=== PATIENT | male | born 1950 | race Caucasian/White ===

== ENCOUNTER 2020-06-10 16:38 | Outpatient (RCR) | payer MEDICARE, SELFPAY ==
[2020-06-10] MEDS: COVID-19 VACC, MRNA(PFIZER)/PF 30 MCG/0.3 ML SYRINGE IM (09:23)
[2020-07-01] MEDS: COVID-19 VACC, MRNA(PFIZER)/PF 30 MCG/0.3 ML SYRINGE IM (08:59)
== END 2020-09-09 23:59 ==
LOC: IMMUN 16:38
PROVIDERS: PCP Family Medicine; Visit Provider Family Medicine
DX: Z23 Encounter for immunization (principal)
CPT/HCPCS: 0001A; 0002A; 91300

== ENCOUNTER 2022-09-05 11:16 | Observation (INO) | payer MEDICARE, SELFPAY ==
[2022-09-05] VITALS (9 sets, daily range): BP systolic 121–181; BP diastolic 71–124; PULSE 57–145; RESP 11–18; TEMP 36.1–36.7; O2SAT 95–100; BMI 24.0; BMI 23.6
--- NOTE | 2022-09-05 11:34 | EKG12_ITS ---
Test Reason : REPEAT Blood Pressure : / mmHG Vent. Rate : 076 BPM Atrial Rate : 288 BPM P-R Int : 000 ms QRS Dur : 102 ms QT Int : 368 ms P-R-T Axes : 266 -15 020 degrees QTc Int : 414 ms Atrial flutter Minimal voltage criteria for LVH, may be normal variant ( R in aVL ) Abnormal ECG Confirmed by LIZZIE DAY, BIJAL ([id number]), editor house organ MAICO SANTOS ([id number]) on 09/06/2022 11:37:19 AM Referred By: Confirmed By:BIJAL SAMUEL MD
--- NOTE | 2022-09-05 11:45 | RAD_ITS ---
EXAM: XR CHEST, 1 VIEW CLINICAL INDICATION: CAD TECHNIQUE: Frontal view of the chest. COMPARISON: No relevant prior studies available. FINDINGS: LUNGS AND PLEURAL SPACES: Normal. No consolidation or edema. No pneumothorax. No effusion. HEART: Normal heart size. MEDIASTINUM: No mediastinal or hilar mass. BONES/JOINTS: No acute abnormality. RAD/Chest 1 View (Portable) IMPRESSION: No acute cardiopulmonary disease. Electronically Signed: Linden Hamlin MD at 12:55 EDT ,
--- NOTE | 2022-09-05 11:45 | EX.ED.DYSGE1 ---
HPI History of Present Illness Chief Complaint: Palpitations Narrative Narrative: 72-year-old male, history of mitral valve prolapse and chronic dysrhythmia, presents with high heart rate and palpitations that began last evening. He relates remote history 30 years ago that he would exercise and lift weights, but his heart rate would never come down and would remain elevated around 120 bpm. He states he has had work-up and EKG and was told he had mitral valve prolapse. Last evening, he began feeling his heart palpitations. He denies any chest pain, chest tightness, nausea, vomiting, or diaphoresis. No exacerbating or alleviating factors. 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 His symptoms started last evening without exerting himself. [facility] Medical History (Updated 09/05/22 @ 16:26 by Ernesto Greene MD) Mitral valve prolapse Home Medications Vitamin D3 2,000 units PO/SL DAILY supplement 09/05/22 [History Last Taken Unknown] omeprazole 20 mg capsule,delayed release 20 mg PO DAILY Check with primary doctor 09/05/22 [History Last Taken Unknown] Allergy/AdvReac Type Severity Reaction Status Date / Time erythromycin base Allergy Nausea/Vom/ Verified 09/05/22 11:17 Diarrhea Penicillins [PCN] Allergy Rash Verified 09/05/22 11:17 Social History (Updated 09/05/22 @ 14:15 by Breanne Bashir) housing: house Smoking Status: Never smoker ROS ROS ED ROS Narrative Constitutional: No fever, no chills. HEENT: No sore throat. No neck pain. No loss of vision. No rhinorrhea. Cardiovascular: No chest pain. Positive palpitations. No pedal edema. Respiratory: No cough, no shortness of breath. Abdominal: No abdominal pain. No nausea. No vomiting. Genitourinary: No dysuria. No hematuria. Musculoskeletal: No myalgias. No arthralgias. Neurologic: No headaches. No dizziness. No lightheadedness. Skin: No rash. No change in color. Psychiatric: No depression. No anxiety. EXAM Physical Exam Narrative Exam Narrative: Afebrile. Vital signs noted. HEENT: Normocephalic. Atraumatic. PERRL, EOMI. Neck soft and supple. No point tenderness or step off. Cardiovascular: Positive tachycardia, very rarely irregular, at around 145 bpm. No murmurs, rubs, or gallops appreciated. Respiratory: No tachypnea. Lungs clear to auscultation bilaterally. Gastrointestinal: Abdomen soft, nontender, with normoactive bowel sounds. No rebound or guarding. Neurological: Awake. Alert. Nonfocal, nonlateralizing. Skin: No rash. Normal color. No pallor. Musculoskeletal: No pedal edema. Full range of motion extremities. Const Vital Signs: 09/05/22 11:17 09/05/22 11:39 Temperature 97.7 F L Temperature Source Temporal Pulse Rate 139 H 145 H Respiratory Rate 18 11 L Blood Pressure 181/124 H 177/116 H Blood Pressure Mean 143 136 Pulse Ox 96 Oxygen Delivery Method Room Air MDM MDM MDM Narrative Medical decision making narrative: EKG was obtained and interpreted by myself as atrial flutter with 2-1 block. I do not feel adenosine is indicated, rather given his elevated heart rate around 150, suspicion was initially for atrial fibrillation. He will be administered Cardizem as he relates history that he used to take a beta-kary for heart dysrhythmias but did not tolerate it. Chest x-ray will be obtained along with basic laboratory work, troponin, magnesium, and TSH. Chest x-ray obtained and interpreted by myself shows no evidence of acute cardiopulmonary process, no pneumonia or pneumothorax. I do not feel any antibiotics are indicated. I reviewed the radiology report which confirms my independent interpretation. I reviewed the patient's laboratory work, WBC count is slightly elevated 11.9 which I think is nonspecific, mild hemoconcentration with a hemoglobin of 16.8, hematocrit normal 49.1. Platelet count normal at 231. In review of his electrolytes, potassium is normal at 3.6, normal sodium of 141, BUN slightly elevated 19 with a creatinine of 1.18. Magnesium is normal at 2.3. Initial high-sensitivity troponin is 67, but still within normal limits. TSH is slightly elevated at 4.84 more consistent with hypothyroidism. After Cardizem, his blood pressure has come down to a more acceptable/borderline level, his heart rate was in the 70s. Repeat EKG interpreted by myself shows atrial flutter with a rate controlled in the 70s. No acute ST changes on my interpretation. Given his onset atrial flutter, patient was discussed with Dr. Pierce for admission. Patient is in stable condition. History & Record Review Discussion w/independent historian: Patient and Family Additional record(s) reviewed:: No prior records Lab Data Attestation: I reviewed the patient's lab results. Labs: Laboratory Results - last 24 hr 09/05/22 09/05/22 09/05/22 11:20 11:20 11:20 WBC 11.9 H RBC 5.65 Hgb 16.8 H Hct 49.1 MCV 86.9 MCH 29.7 MCHC 34.2 RDW Std Deviation 41.5 RDW Coeff of Keron 13.2 Plt Count 231 MPV 10.2 Immature Gran % (Auto) 0.700 Neut % (Auto) 77.0 H Lymph % (Auto) 12.6 L [place] % (Auto) 9.3 Eos % (Auto) 0.1 Baso % (Auto) 0.3 Absolute Neuts (auto) 9.2 H Absolute Lymphs (auto) 1.50 Nucleated RBC % 0 Sodium 141 Potassium 3.6 Chloride 107 Carbon Dioxide 26.0 Anion Gap 8 BUN 19 H Creatinine 1.18 Estim Creat Clear Calc 65.83 Est GFR (MDRD) Af Amer 78 Est GFR (MDRD) Non-Af 65 BUN/Creatinine Ratio 16.1 Glucose 113 H Calcium 9.4 Phosphorus 3.4 Magnesium 2.3 2.4 Total Bilirubin 0.50 AST 24 ALT 24 Alkaline Phosphatase 63 Troponin I High Sens 67 Total Protein 7.4 Albumin 4.2 Globulin 3.2 Albumin/Globulin Ratio 1.3 TSH 4.84 H Radiography Diagnostic Testing: Clinical Impression(s) from Imaging Studies Chest X-Ray 09/05/22 11:45 IMPRESSION: No acute cardiopulmonary disease. Electronically Signed: Linden Hamlin MD at 12:55 EDT , Discharge Plan Dx/Rx/DC Orders Clinical Impression: Atrial flutter with rapid ventricular response, Palpitations Disposition Disposition: Acute Care Hospital [facility] Discharge Date/Time: 09/05/22 13:43
[2022-09-05] MEDS: dilTIAZem 25 MG/5 ML Vial 20 MG IV BOLUS (11:47)
[2022-09-05 11:49] LABS: Absolute Neutrophil Count 9.2 X10^3/uL (2.0-7.7); Basophil# 0.04 X10^3/uL; Basophil% 0.3 % (0-1); Eosinophil# 0.01 X10^3/uL; Eosinophils% 0.1 % (0-5); Hematocrit 49.1 % (40-54); Hemoglobin 16.8 g/dL (13.0-16.5); Lymphocyte % 12.6 % (19-41); Mean Corp Hgb Conc 34.2 g/dL (32-36); Mean Corpuscular Hgb 29.7 pg (27.0-32.0); Mean Corpuscular Volume 86.9 fL (80-94); Mean Platelet Vol. 10.2 fl (6.2-12.0); Monocyte# 1.11 X10^3/uL; Monocyte% 9.3 % (0-10); NRBC Flagged by Analyzer 0 % (0-5); Neutrophil # 9.15 X10^3/uL (2.7-7.7); Platelet Count 231 K/mm3 (150-450); RBC Distribution Width CV 13.2 % (11.6-14.6); RBC Distribution Width SD 41.5 fl (35.1-43.9); Red Blood Count 5.65 M/mm3 (4.6-6.2); White Blood Count 11.9 K/mm3 (4.4-11.0)
--- NOTE | 2022-09-05 12:04 | EKG12_ITS ---
Test Reason : PALPITATIONS Blood Pressure : / mmHG Vent. Rate : 145 BPM Atrial Rate : 290 BPM P-R Int : 000 ms QRS Dur : 110 ms QT Int : 252 ms P-R-T Axes : 232 -21 056 degrees QTc Int : 391 ms Atrial flutter with 2:1 A-V conduction Incomplete right bundle branch block Minimal voltage criteria for LVH, may be normal variant ( R in aVL ) Nonspecific ST abnormality Abnormal ECG Confirmed by LIZZIE DAY, BIJAL ([id number]), videotape editor MAICO SANTOS ([id number]) on 09/06/2022 11:37:40 AM Referred By: SUKI Confirmed By:BIJAL SAMUEL MD
[2022-09-05 12:18] LABS: ALB/GLOB Ratio 1.3 RATIO (0.9-2.4); AST(SGOT) 24 U/L (15-37); Alanine Aminotransfer ALT/SGPT 24 U/L (16-61); Albumin, Serum 4.2 g/dL (3.2-5.0); Alkaline Phosphatase 63 U/L (45-117); Anion Gap 8 (5-15); BUN 19 mg/dL (7-18); BUN/Creat Ratio 16.1 RATIO (10-20); Calcium,Total 9.4 mg/dL (8.5-10.1); Chloride 107 mmol/L (98-107); Creatinine, Serum 1.18 mg/dL (0.70-1.30); EST Glomerular Filtration Rate 65 mL/min (>60); Est Glom Filt Rate - Afr Amer 78 mL/min (>60); Estimated Creatinine Clearance 65.83 ml/min; Globulin 3.2 g/dL (2.2-4.2); Glucose 113 mg/dL (74-106); Magnesium 2.3 mg/dL (1.6-2.6); Potassium 3.6 mmol/L (3.5-5.1); Protein, Total 7.4 g/dL (6.4-8.2); Sodium Level 141 mmol/L (136-145); Thyroid Stim Hormone (TSH) 4.84 uIU/mL (0.358-3.74); Troponin-I HS 67 pg/mL (3.0-78.0)
--- NOTE | 2022-09-05 13:08 | PCM.HP.STD ---
[facility] - General General Date of Admission: 09/05/22 Date of Service: 09/05/22 Chief Complaint: Palpitations started last night. HPI Narrative MILLA DANG, is a 72 healthy gentleman came to ED for palpitation that started last night. Patient felt his heart racing and palpitation without exacerbating or relieving factor. Patient also felt winded/mild shortness of breath last evening but denies chest pain tightness or pressure. He has history of mitral valve prolapse diagnosed about 30 years ago when he was still heavy lifting and exercise and heart rate would not come down and remained elevated in the 120s. After he stopped doing heavy exercise, he did not had problems with a heart rate. At that time he was also on metoprolol for 6 months and was discontinued operatory felt mild coldness in hands and feet with physician recommendation. No history of coronary artery disease or dysrhythmia in the past. Patient denies history of hypertension, diabetes mellitus, coronary artery disease or other cardiac disease pulmonary disease or stroke/PAD. Twelve-lead EKG in ED shows atrial flutter 145/m; 2:1 conduction, incomplete RBBB, mild LVH with nonspecific ST-T abnormality. Patient was given diltiazem 20 mg IV push and heart rate slowed down to 76 bpm. Previous EKG in October 2011 was normal sinus rhythm 76 bpm. Patient also had hives about 3 to 4 days ago and was given prescription of hydroxyzine and tapering dose of prednisone. Patient is on 3rd day of prednisone 40 mg, then 20 mg for 3 days and then 10 mg for 3 days then stop. Patient states hives got cleared even before starting prednisone and hydroxyzine. He is also on PPI for abdominal pain. Patient has lower bilateral abdominal pain/pelvic pain and was started on PPI after extensive work-up including ultrasound and abdominal CT scan did not show acute abnormality as per the patient. He had 3 meshes for left recurrent inguinal hernia repair. Patient states after he started prednisone he feels relief from the lower abdominal pain. Social history: No smoking or chronic alcohol use. No substance use. Family history: Noncontributory to the present illness. [facility] Home Medications omeprazole 20 mg capsule,delayed release mg 09/05/22 [History Last Taken Unknown] Allergy/AdvReac Type Severity Reaction Status Date / Time erythromycin base Allergy Nausea/Vom/ Verified 09/05/22 11:17 Diarrhea Penicillins [PCN] Allergy Rash Verified 09/05/22 11:17 Social History Smoking Status: Never smoker ROS ROS Narrative Constitutional: No fever. No weight loss or acute pain. HEENT: Reports systems reviewed and no addt'l complaints, except as documented Respiratory/Chest: No acute shortness of breath or respiratory distress or wheezing. CVS: As mentioned HPI Gastrointestinal: Denies coffee ground emesis, hematemesis or vomiting Genitourinary: Denies burning urination or new urinary tract symptoms Musculoskeletal: Denies acute joint pain or limited range of motion. No acute injury Neurologic: Denies seizure-like symptoms. skin: history of recent hives, resolved; admission HPI. Endocrinology: Denies diabetes mellitus. Reports systems reviewed and no addt'l complaints, except as documented Hematologic/Lymphatic: Reports systems reviewed and no addt'l complaints, except as documented Rest 14 ROS are negative except as mentioned in HPI Vital Signs Vital Signs Vital Signs: 09/05/22 11:17 09/05/22 11:39 Temperature 97.7 F L Temperature Source Temporal Pulse Rate 139 H 145 H Respiratory Rate 18 11 L Blood Pressure 181/124 H 177/116 H Blood Pressure Mean 143 136 Pulse Ox 96 Oxygen Delivery Method Room Air Weight Weight: 182 lb 11.2 oz Body Mass Index (BMI) 24.0 Physical Exam Narrative General: Alert, Oriented x3, Cooperative HEENT: Atraumatic, PERRLA, EOMI, Normocephalic Oral: No Gingival or Mucosal Lesions/ Ulcerations Neck: Supple, No JVD, Negative Carotid Bruits Lungs: Air entry diminished in bilateral lung bases. No crepitation/rhonchi Cardiovascular: Atrial flutter, Normal S1, Normal S2, systolic murmur with click over cardiac apex and LLSB Abdomen: Bowel Sounds Present, Soft, Non Tender, Non-Distended : No renal angle tenderness. No suprapubic tenderness. Extremities: No edema, Capillary Refill Less than 3 Seconds Skin: No rashes, No breakdown Musculoskeletal: No Tenderness to Palpation of Joints or Extremities Neurological: Cranial nerves II-XII grossly intact, DTR 2+/4 and Symmetrical, Neuro grossly intact Psych/Mental Status: Normal Affect, Appropriate. Results Lab / Micro Data Result Diagrams: 09/05/22 11:20 09/05/22 11:20 Labs: Laboratory Results - last 24 hr 09/05/22 11:20: WBC 11.9 H, RBC 5.65, Hgb 16.8 H, Hct 49.1, MCV 86.9, MCH 29.7, MCHC 34.2, RDW Std Deviation 41.5, RDW Coeff of Keron 13.2, Plt Count 231, MPV 10.2, Immature Gran % (Auto) 0.700, Neut % (Auto) 77.0 H, Lymph % (Auto) 12.6 L, Benzie % (Auto) 9.3, Eos % (Auto) 0.1, Baso % (Auto) 0.3, Absolute Neuts (auto) 9.2 H, Absolute Lymphs (auto) 1.50, Nucleated RBC % 0 09/05/22 11:20: Sodium 141, Potassium 3.6, Chloride 107, Carbon Dioxide 26.0, Anion Gap 8, BUN 19 H, Creatinine 1.18, Estim Creat Clear Calc 65.83, Est GFR (MDRD) Af Amer 78, Est GFR (MDRD) Non-Af 65, BUN/Creatinine Ratio 16.1, Glucose 113 H, Calcium 9.4, Magnesium 2.3, Total Bilirubin 0.50, AST 24, ALT 24, Alkaline Phosphatase 63, Troponin I High Sens 67, Total Protein 7.4, Albumin 4.2, Globulin 3.2, Albumin/Globulin Ratio 1.3, TSH 4.84 H Radiology Impression Chest X-Ray 09/05/22 11:45 IMPRESSION: No acute cardiopulmonary disease. Electronically Signed: Linden Hamlin MD at 12:55 EDT , Assessment & Plan Assessment/Plan (1) Atrial flutter with rapid ventricular response: PLAN: Plan This 72-year-old gentleman being admitted for new onset atrial flutter with RVR 1. Atrial flutter with RVR: Patient is being admitted in PCU. Patient heart rate has slowed down after 20 mg diltiazem bolus. Metoprolol 25 mg twice daily first dose now. Electrolytes in normal range. TSH 4.84 upper normal range. Free T4 ordered for tomorrow AM. First troponin normal. Repeat second troponin of 2 hours and if that normal, does not need further troponin. Patient profile tomorrow AM. [id number] 2 score is 1. Started on Eliquis 5 mg twice daily. 2D echo ordered. 2. Elevated BP: BP was 181/124, decreased to 156/99 in ED. Patient does not have diagnosis of hypertension. lisinopril 10 mg started. Titrate antihypertensive medication as per blood pressure monitoring. Labetalol 10 mg IV every 4 hourly as needed for systolic blood pressure more than 180 mmHg. Patient will need ambulatory or home BP monitoring to diagnose hypertension. 3. Mild hyperglycemia glucose 113: A1c ordered for tomorrow AM. 4. Recent hives, resolved. Patient on tapering dose of prednisone. Prednisone 20 mg daily for 3 days, 10 mg for 3 days and then stop. 5. Nonspecific lower abdominal pain with history of left recurrent inguinal hernia status post 3 times mesh repair: Patient is getting benefited with PPI and prednisone. Continue PPI. Discussed with patient if patient still has abdominal pain after 6 to 8 weeks of PPI will need EGD. Follow-up GI outpatient referral from PCP. VTE prophylaxis: Moderate-risk: On Eliquis 5 mg twice daily. Living will/advanced directive/end of life care: Patient does not have signed living will or advanced directive but he completed all the paperwork. After discussion of benefits/risks procedures involved with full code, DNR CC arrest and DNR CC, the patient, his and son near the bedside opted for full code. Patient does want artificial life support including intubation, tube feed, ventilator and/chest compression, central venous catheter, vasopressor and DC shock if needed Total time spent in [id number] encounter in discussion of advanced directive 17 minutes. Laboratory Results 09/05/22 11:20: WBC 11.9 H, RBC 5.65, Hgb 16.8 H, Hct 49.1, MCV 86.9, MCH 29.7, MCHC 34.2, RDW Std Deviation 41.5, RDW Coeff of Keron 13.2, Plt Count 231, MPV 10.2, Immature Gran % (Auto) 0.700, Neut % (Auto) 77.0 H, Lymph % (Auto) 12.6 L, Benzie % (Auto) 9.3, Eos % (Auto) 0.1, Baso % (Auto) 0.3, Absolute Neuts (auto) 9.2 H, Absolute Lymphs (auto) 1.50, Nucleated RBC % 0 09/05/22 11:20: Sodium 141, Potassium 3.6, Chloride 107, Carbon Dioxide 26.0, Anion Gap 8, BUN 19 H, Creatinine 1.18, Estim Creat Clear Calc 65.83, Est GFR (MDRD) Af Amer 78, Est GFR (MDRD) Non-Af 65, BUN/Creatinine Ratio 16.1, Glucose 113 H, Calcium 9.4, Magnesium 2.3, Total Bilirubin 0.50, AST 24, ALT 24, Alkaline Phosphatase 63, Troponin I High Sens 67, Total Protein 7.4, Albumin 4.2, Globulin 3.2, Albumin/Globulin Ratio 1.3, TSH 4.84 H 09/05/22 11:20: Phosphorus 3.4, Magnesium 2.4 Clinical Impression(s) from Imaging Studies Chest X-Ray 09/05/22 11:45 IMPRESSION: No acute cardiopulmonary disease. Charges/Coding Visit Charges Inpatient E&M: 90118 Init Hosp L3 Procedures Hospitalists Procedures: 80618 Advncd Care Plan 30 Min
[2022-09-05 13:28] LABS: Magnesium 2.4 mg/dL (1.6-2.6); Phosphorus 3.4 mg/dL (2.5-4.9)
[2022-09-05] MEDS: Potassium Chloride Oral Tablet 20 MEQ 40 MEQ PO (13:36)
[2022-09-05] MEDS: Lactated Ringers 1,000 ML 75 ML IV (14:17)
[2022-09-05 14:40] LABS: Troponin-I HS 87 pg/mL (3.0-78.0)
[2022-09-05] MEDS: predniSONE 10 MG Tablet 20 MG PO (15:14)
[2022-09-05] MEDS: APIXABAN 5 MG TABLET PO ×2 (15:15→22:41)
[2022-09-05] MEDS: Metoprolol Tartrate 25 MG Tablet PO (15:15)
[2022-09-05] MEDS: Pantoprazole Sodium 40 MG Tablet PO (15:15)
[2022-09-05] MEDS: Lisinopril 10 MG Tablet PO (15:15)
[2022-09-05] MEDS: Loratadine 10 MG Tablet PO (22:41)
[2022-09-06 03:29] VITALS: BP 120/76; PULSE 54; RESP 18; TEMP 36.6; O2SAT 96
--- NOTE | 2022-09-06 03:37 | EKG12_ITS ---
Test Reason : RHYTHM CONVERSION Blood Pressure : / mmHG Vent. Rate : 048 BPM Atrial Rate : 048 BPM P-R Int : 148 ms QRS Dur : 096 ms QT Int : 478 ms P-R-T Axes : 058 -01 008 degrees QTc Int : 427 ms Sinus bradycardia Otherwise normal ECG When compared with ECG of 05-SEP-2022 11:56, MANUAL COMPARISON REQUIRED, DATA IS UNCONFIRMED Confirmed by LIZZIE DAY, BIJAL ([id number]), videotape editor MAICO SANTOS ([id number]) on 09/07/2022 8:59:22 AM Referred By: COBY Confirmed By:BIJAL SAMUEL MD
--- NOTE | 2022-09-06 05:55 | ECHOD_ITS ---
Version 2 Reason For Study: ARRYTHMIA Procedure This was a 2D Doppler, Color Flow transthoracic echocardiogram. Exam performed portable in patient room. Left Ventricle Normal LV size. Left ventricular systolic function is normal. The estimated ejection fraction is 55 %. No regional wall motion abnormalities noted. Right Ventricle Normal RV size. Normal systolic function. Atria The left atrium is mildly enlarged. The right atrium is mildly enlarged. Mitral Valve Mild diffuse mitral valve thickening. Mild mitral valve prolapse. Mild (1+) eccentric mitral valve insufficiency. Tricuspid Valve Normal tricuspid valve. Mild tricuspid valve insufficiency. Pulmonary artery systolic pressure is 23 mmHg. Aortic Valve Trisinus/trileaflet aortic valve. Mild (1+) eccentric aortic valve insufficiency. Pulmonic Valve Normal pulmonic valve. Great Vessels Normal aortic root. The pulmonary artery is normal size. Inferior vena cava collapse with respiration. Pericardium/Pleural No pericardial effusion. MMode/2D Measurements & Calculations LVIDd: 5.0 cm IVSd: 1.1 cm Ao root diam: 3.7 cm LVIDs: 3.7 cm LVPWd: 1.4 cm RVDd: 5.1 cm FS: 26.6 % LAV(MOD-bp): 74.5 ml LVAd ap4: 40.2 cm2 SV(MOD-sp4): 92.5 ml LAV(MOD-bp) Indexed: 36.4 ml/m2 LVLd ap4: 9.2 cm LAV(MOD-sp2): 74.9 ml EDV(MOD-sp4): 146.4 ml LAV(MOD-sp4): 74.0 ml EDV(sp4-el): 148.9 ml LVAs ap4: 21.5 cm2 LVLs ap4: 7.8 cm ESV(MOD-sp4): 53.8 ml ESV(sp4-el): 50.5 ml EF(MOD-sp4): 63.2 % EF(sp4-el): 66.1 % SV(sp4-el): 98.4 ml LA A4 area: 23.3 cm2 LA dimension(2D): 3.6 cm RA A4 area: 25.6 cm2 Time Measurements MV dec time: 0.31 sec Doppler Measurements & Calculations MV E max shankar: 46.5 cm/sec Lat Peak E' Shankar: 11.7 cm/sec Med Peak E' Shankar: 6.9 cm/sec MV A max shankar: 31.0 cm/sec E/E' lat: 4.0 E/E' med: 6.7 MV E/A: 1.5 MV V2 max: 100.0 cm/sec Ao V2 max: 138.7 cm/sec MV max P.1 mmHg MV dec slope: 152.5 cm/sec2 Ao max P.7 mmHg MV V2 mean: 54.9 cm/sec Ao V2 mean: 87.6 cm/sec MV mean P.4 mmHg Ao mean P.7 mmHg MV V2 VTI: 33.1 cm Ao V2 VTI: 28.0 cm AV (velocity ratio): 0.91 LV V1 max: 122.7 cm/sec TR max shankar: 225.2 cm/sec LV V1 max P.1 mmHg TR max P.3 mmHg LV V1 mean P.8 mmHg LV V1 mean: 77.9 cm/sec LV V1 VTI: 25.6 cm ECHO/Echo Complete Interpretation Summary Normal LV size. Left ventricular systolic function is normal. The estimated ejection fraction is 55 %. No regional wall motion abnormalities noted. Mild diffuse mitral valve thickening. Mild mitral valve prolapse. Mild (1+) eccentric mitral valve insufficiency. Mild tricuspid valve insufficiency. Ordering Physician: Babak Pierce Referring Physician: Taina Dumont M.D. Performed By: Jazmin Newell RCS
[2022-09-06 07:23] LABS: Absolute Lymphocyte Count 1.34 X10^3/uL (0.83-4.51); Absolute Neutrophil Count 7.1 X10^3/uL (2.0-7.7); Basophil# 0.04 X10^3/uL; Basophil% 0.4 % (0-1); Eosinophil# 0.01 X10^3/uL; Eosinophils% 0.1 % (0-5); Hematocrit 48.3 % (40-54); Hemoglobin 15.7 g/dL (13.0-16.5); Lymphocyte # 1.34 X10^3/ul (0.83-4.51); Lymphocyte % 14.5 % (19-41); Mean Corp Hgb Conc 32.5 g/dL (32-36); Mean Corpuscular Hgb 29.2 pg (27.0-32.0); Mean Corpuscular Volume 89.9 fL (80-94); Mean Platelet Vol. 10.8 fl (6.2-12.0); Monocyte# 0.65 X10^3/uL; Monocyte% 7.1 % (0-10); NRBC Flagged by Analyzer 0 % (0-5); Neutrophil % 77.1 % (47-70); Platelet Count 226 K/mm3 (150-450); RBC Distribution Width CV 13.4 % (11.6-14.6); RBC Distribution Width SD 43.9 fl (35.1-43.9); Red Blood Count 5.37 M/mm3 (4.6-6.2); White Blood Count 9.2 K/mm3 (4.4-11.0)
[2022-09-06 07:56] VITALS: O2SAT 98
[2022-09-06 08:48] LABS: AST(SGOT) 19 U/L (15-37); Alanine Aminotransfer ALT/SGPT 24 U/L (16-61); Albumin, Serum 3.5 g/dL (3.2-5.0); Alkaline Phosphatase 58 U/L (45-117); Anion Gap 8 (5-15); BUN 21 mg/dL (7-18); BUN/Creat Ratio 21.7 RATIO (10-20); Bilirubin, Direct 0.15 mg/dL (0.00-0.30); Calcium,Total 9.1 mg/dL (8.5-10.1); Chloride 108 mmol/L (98-107); Cholesterol 187 mg/dL (200); Creatinine, Serum 0.97 mg/dL (0.70-1.30); EST Glomerular Filtration Rate 82 mL/min (>60); Est Glom Filt Rate - Afr Amer 99 mL/min (>60); Estimated Creatinine Clearance 80.08 ml/min; Globulin 2.9 g/dL (2.2-4.2); Glucose 116 mg/dL (74-106); High Density Lipoprotein 28 mg/dL; Potassium 4.5 mmol/L (3.5-5.1); Protein, Total 6.4 g/dL (6.4-8.2); Sodium Level 139 mmol/L (136-145); T4 Free Direct 0.87 ng/dL (0.76-1.46); Triglycerides 136 mg/dL; Very Low Density Lipoprotein 27 mg/dL (5-40)
[2022-09-06 09:11] VITALS: BP 123/75; PULSE 53; RESP 16; TEMP 36.7; O2SAT 98
[2022-09-06] MEDS: Pantoprazole Sodium 40 MG Tablet PO (09:18)
[2022-09-06] MEDS: APIXABAN 5 MG TABLET PO ×2 (09:18→18:25)
[2022-09-06] MEDS: predniSONE 10 MG Tablet 20 MG PO (09:18)
[2022-09-06 09:20] LABS: Hemoglobin A1c 5.8 % (3.8-5.6)
[2022-09-06 10:55] VITALS: PULSE 53
--- NOTE | 2022-09-06 11:30 | CASEMGMT ---
RN?CM?CHIMNEY CONSTRUCTION SUPERVISOR?CM?to room to meet with patient for initial transition planning/care coordination?assessment.?RN?CM?introduced self and role at [facility] [place].? Pt voices understanding and consents to?assessment?at this time.? Pt resting in bed in no distress at this time.? Pt is A/O at this time and answers all questions appropriately.?? Care providers, pharmacy, and demographics verified/updated at this time. PCP: Dr Dumont Specialists: Dr Hay-surgeon [facility]erred [facility]acy: [facility] Insurance: [employer] Prescription Benefit: yes. Pt provided w/Eliquis 30-day savings card and instructed on use. Living Will/HPOA:?Pt does not currently have LW/HCPOA. He states he has the paperwork filled out but just needs to get it notarized. Pt made aware SW can assist, if needed. He declines needing assistance. LNOK: , Anneliese. 2 sons. One's name is Jf Living Arrangements: Lives w/ in 2-story home w/2 steps to enter. Denies difficulty w/stairs. Independent. Transportation:?Pt states drives self and states no transportation concerns at this time.? also drives. DME: ? Denies using any DME and denies needs.? HHC/SNF: No hx of either and denies need for HHC. No needs identified. Pt wishes to return home and states has no concerns with going home at time of discharge.? CM?to follow for any further discharge planning/needs.? Pt voices no further concerns/needs at this time.? Advised pt to ask for?CM?if any further questions/concerns/needs arise.? Voices understanding. PLAN:??Home Yvette PRUITTN?RN?CM
--- NOTE | 2022-09-06 15:10 | CHAPLAIN ---
Type of Pastoral Visit _x__ Initial Visit ___ Follow-up Visit ___ On-call Visit ___ General Patient Visit ___ Spiritual Assessment ___ Family Conference ___ Bereavement ___ Rapid Response ___ Code Blue ___ Other (describe below) Pastoral Care Referral From _x__ Patient ___ Family ___ Nurse ___ Physician ___ Sawmill Worker ___ Industrial Electrician Journeyman ___ Other (describe below) Sacrament/Intervention _x__ Active listening ___ Anointing ___ Congregation ___ Bereavement ___ Communion _x__ Elaina exploration ___ _x__ Life review _x__ Prayer ___ Reconciliation ___ Sacrament of Sick ___ Supportive presence ___ Wedding ___ Other (describe below) Pastoral Comments patient is a professional acquaintance; pt is eager to talk and receive spiritual care support; pt talks about his life, his elaina, his family; pt does not have extra concerns at this time but welcomes the presence and prayer for support
[2022-09-06 17:13] VITALS: BP 122/68; PULSE 58; RESP 16; TEMP 36.7; O2SAT 96
--- NOTE | 2022-09-06 17:56 | DCINST_ITS ---
Discharge Instructions Diet Discharge Diet: Low fat / Low cholesterol Activity Discharge Activity: Return to Normal Activity Dressing / Incision Call your doctor if you observe: Fever of 101 or Higher, Shortness of breath, Dizziness, Swelling in the ankles, Chest pain and Increased palpitations (irregular heartbeat) Follow Up Care Test Results: Test results from this visit will be discussed in further detail at your follow- up appointment, if applicable. Discharge Plan Admission Admit Date/Time: 09/05/22 13:03 Primary Reason for Your Visit: afib Attending Provider: Karly Diggs Primary Care Provider: Taina Dumont Consulting Providers: Babak Pierce Instructions Patient Instructions: AFib Discharge Orders/Prescriptions Prescriptions: New Eliquis 5 mg Tablet 5 mg PO Q12 Qty: 60 2RF metoprolol tartrate 25 mg tablet 12.5 mg PO BID Qty: 30 1RF Continued omeprazole 20 mg capsule,delayed release(DR/EC) 20 mg PO DAILY Label Comments: take 1 capsule by mouth EVERY MORNING BEFORE BREAKFAST Vitamin D3 2,000 units PO/SL DAILY Referrals / Follow Up: Taina Dumont MD [Primary Care Provider] - Taina Dumont MD [[facility]] - Within 1 Week Disposition Disposition (needs filled in before D/C Order can be placed): Home, Self Care
--- NOTE | 2022-09-06 17:57 | DS.PCM_ITS ---
Providers Date of Admission: 09/05/22 Primary Care Physician: Dr. Taina Dumont MD Reason For Visit: ATRIAL FLUTTER WITH RVR Diagnosis Discharge Diagnosis (1) Atrial flutter with rapid ventricular response: Status: Acute Code(s): I48.92 - Unspecified atrial flutter Medications at Discharge Home Medications Vitamin D3 2,000 units PO/SL DAILY supplement 09/05/22 omeprazole 20 mg capsule,delayed release 20 mg PO DAILY reflux 09/05/22 apixaban 5 mg tablet (Eliquis) 5 mg PO Q12 #60 tabs 09/06/22 metoprolol tartrate 25 mg tablet 12.5 mg PO BID #30 tabs 09/06/22 Hospital Course Operations None Procedures 2-D Echocardiogram Summary of Care Provided Minutes Spent on Discharge: 44 Hospital Course: Patient is a 72-year-old male with a past medical history as outlined who came into the ED on 09/05/2022 with a complaint of palpitations which started the night before admission. He felt his heart was racing though he had no aggravating or relieving factors. His shortness of breath is worsened with exertion. Patient said he had been a runner for about 50 years and had also had mitral valve prolapse which was diagnosed about 30 years ago but had not had any surgery for it. He denies any chest pain or any other symptoms. He had previously been on metoprolol many years ago but says it was subsequently stopped because he felt something hold in his hands and also his physician recommended that he stop. On admission EKG showed A-fib with RVR with heart rate of 145 mmHg. He was given a dose of IV Cardizem push and heart rate slowed down to the 70s. Of note patient had had hives about 4 days prior to admission had been given a prescription for hydroxyzine and tapering dose of steroids. He was also on PPI for abdominal pain which sounded like it was likely reflux. Review of systems otherwise negative. He was admitted and managed for new onset A-fib with RVR. He was started on metoprolol 25 mg twice daily. His TSH was slightly elevated at 4.84 but his free T4 was normal. Troponins were all normal. His Ike vas score was 1. He was started on Eliquis. 2D echo was ordered which showed EF of 55% with no regional wall motion abnormalities. His heart rate improved and he had to be mildly bradycardic. He said previously when he had been on metoprolol his heart rate had gone down to the 20s. His metoprolol was cut down to 12.5 mg twice daily and patient was counseled that he should not take metoprolol if he checked his heart rate and was less than 50. He was to check his heart rate daily and to inform his physician if he became bradycardic with sustained heart rate less than 50. He was also given a prescription for p.o. Eliquis 5 mg twice daily. He was counseled to establish with a sterilizer machine operator and patient preferred to make his own appointment with cardiology. Discharged home on 09/07/2022. He is to follow-up with his primary care doctor within 1 to 2 weeks. Patient seen and examined prior to discharge. He had no complaints and had an uneventful night. Review of systems otherwise negative. Labs and vitals reviewed. Medication reviewed and reconciled. Physical Exam Const alert, oriented x3 and no apparent distress General Appearance: cooperative, comfortable and well kempt Exam Limitations: no limitations HEENT normocephalic, head/scalp atraumatic, hearing grossly normal bilaterally and moist oral mucous membranes Mouth: oral and palatal mucosa normal Eyes PERRL, EOMs intact bilaterally and conjunctivae normal Neck no lymphadenopathy and supple Resp normal respiratory effort, no retractions, no use of accessory muscles and clear to auscultation bilaterally Cardio regular rhythm, S1 normal heart sound and S2 normal heart sound Cardio Narrative: Mild bradycardia GI normal to inspection, nondistended, normoactive bowel sounds, soft to palpation, non-tender and non-distended Extremity normal to inspection, full ROM and no clubbing, cyanosis or edema Skin no rashes or lesions noted, no wounds and skin turgor normal Neuro oriented x3, CN's II-XII intact bilaterally, moves all extremities and no focal motor deficits Sensorium / Orientation: awake and alert Motor Exam: strength 5/5 throughout Psych affect normal Weight / BMI Weight Weight: 178 lb 9.191 oz Body Mass Index (BMI) 23.6 ABG / Lab / Microbiology Data Result Diagrams: 09/06/22 05:47 09/06/22 05:47 Laboratory: Laboratory Results - last 24 hr 09/06/22 05:47: WBC 9.2, RBC 5.37, Hgb 15.7, Hct 48.3, MCV 89.9, MCH 29.2, MCHC 32.5, RDW Std Deviation 43.9, RDW Coeff of Keron 13.4, Plt Count 226, MPV 10.8, Immature Gran % (Auto) 0.800, Neut % (Auto) 77.1 H, Lymph % (Auto) 14.5 L, [place] % (Auto) 7.1, Eos % (Auto) 0.1, Baso % (Auto) 0.4, Absolute Neuts (auto) 7.1, Absolute Lymphs (auto) 1.34, Nucleated RBC % 0 09/06/22 05:47: Sodium 139, Potassium 4.5, Chloride 108 H, Carbon Dioxide 23.0, Anion Gap 8, BUN 21 H, Creatinine 0.97, Estim Creat Clear Calc 80.08, Est GFR (MDRD) Af Amer 99, Est GFR (MDRD) Non-Af 82, BUN/Creatinine Ratio 21.7 H, Glucose 116 H, Calcium 9.1, Total Bilirubin 0.60, Direct Bilirubin 0.15, AST 19, ALT 24, Alkaline Phosphatase 58, Total Protein 6.4, Albumin 3.5, Globulin 2.9, Triglycerides 136, Cholesterol 187, LDL Cholesterol 132 H, VLDL Cholesterol 27, HDL Cholesterol 28 L, Free T4 0.87 09/06/22 05:47: Hemoglobin A1c 5.8 H Radiography Diagnostic Testing: Radiology Impression Echocardiogram 09/06/22 05:55 Interpretation Summary Normal LV size. Left ventricular systolic function is normal. The estimated ejection fraction is 55 %. No regional wall motion abnormalities noted. Mild diffuse mitral valve thickening. Mild mitral valve prolapse. Mild (1+) eccentric mitral valve insufficiency. Mild tricuspid valve insufficiency. Ordering Physician: Babak Pierce Referring Physician: Taina Dumont M.D. Performed By: Jazmin Newell RCS D/C Instructions Discharge Diet: Low fat / Low cholesterol Weight Bearing Status: Weight bearing as tolerated Call your doctor if you observe: Fever of 101 or Higher, Shortness of breath, Dizziness, Swelling in the ankles, Chest pain and Increased palpitations (irregular heartbeat) Meaningful Use Info Meaningful Use Diagnoses (Choose all that apply): None applicable Discharge Plan Admission Admit Date/Time: 09/05/22 13:03 Primary Reason for Your Visit: afib Attending Provider: Karly Diggs Primary Care Provider: Taina Dumont Consulting Providers: Babak Pierce Instructions Patient Instructions: AFib Discharge Orders/Prescriptions Prescriptions: New Eliquis 5 mg Tablet 5 mg PO Q12 Qty: 60 2RF metoprolol tartrate 25 mg tablet 12.5 mg PO BID Qty: 30 1RF Continued omeprazole 20 mg capsule,delayed release(DR/EC) 20 mg PO DAILY Label Comments: take 1 capsule by mouth EVERY MORNING BEFORE BREAKFAST Vitamin D3 2,000 units PO/SL DAILY Referrals / Follow Up: Taina Dumont MD [Primary Care Provider] - Taina Dumont MD [[facility]] - Within 1 Week Disposition Disposition (needs filled in before D/C Order can be placed): Home, Self Care Charges/Coding Visit Charges Inpatient E&M: 23813 Disch Hosp >30min
== END 2022-09-06 18:39 | disposition home or self-care (01) | DRG 310 ==
LOC: ED 13:12 → PCU 09-06 07:29
PROVIDERS: Admitting Provider Internal Medicine; Emergency Provider Emergency Medicine; PCP Internal Medicine; Visit Provider Student in an Organized Health Care Education/Training Program
DX: I48.92 Unspecified atrial flutter (principal); I48.91 Unspecified atrial fibrillation; K40.91 Unilateral inguinal hernia, without obstruction or gangrene, recurrent; R03.0 Elevated blood-pressure reading, without diagnosis of hypertension; R73.9 Hyperglycemia, unspecified; Z79.01 Long term (current) use of anticoagulants; Z79.899 Other long term (current) drug therapy
CPT/HCPCS: 36415; 71045; 80048; 80053; 80061; 80076; 83036; 83735; 84100; 84439; 84443; 84484; 85025; 93005; 93306; 94668; 96361; 96374; 99221; 99252; 99285; J7120; A4216; G0378; G0463